=== PATIENT | male | born 1960 ===

== ENCOUNTER 2025-06-21 06:00 | Day surgery (SDC) | payer OTHER ==
[2025-06-18 14:19] VITALS: BP 131/77
[~2025-06-21] VITALS: Ht 175.3 cm; Wt 88.5 kg
[~2025-06-21 06:00] MED LIST: COZAAR25 MG PO; CRESTOR40 MG; ECOTRIN81 MG PO; HYDROCHLOROTHIA25 MG PO; NEXIUM40 M1 PO; PLAVIX75 MG PO; SYNTHROID88 MCG PO
== END 2025-06-21 10:55 | disposition home or self-care (01) ==
LOC: CIR.AMB 06:00
PROVIDERS: ATTEND Internal Medicine
DX: D13.6 Benign neoplasm of pancreas (principal); R93.3 Abnormal findings on diagnostic imaging of other parts of digestive tract